=== PATIENT | male | born 1980 | race Caucasian/White ===

== ENCOUNTER 2017-06-07 18:30 | Emergency (ER) | payer OTHER ==
[~2017-06-07] VITALS: Ht 188 cm; Wt 124.7 kg
[~2017-06-07 18:30] MED LIST: Ativan1 MG PO; Zofran Odt4 MG SL
[2017-06-07] MEDS ORDERED: Norco 5-325 Ta1 EACH PO (19:52)
[2017-06-07] MEDS ORDERED: Cyclobenzaprine5 MG PO (19:54)
[2017-06-07] MEDS ORDERED: Ultram50 MG PO (20:09)
== END 2017-06-07 20:12 | disposition home or self-care (01) ==
LOC: ER 18:30
DX: M54.2 Cervicalgia (principal); M25.512 Pain in left shoulder; Z88.5 Allergy status to narcotic agent; Z88.8 Allergy status to other drugs, medicaments and biological substances; Z87.891 Personal history of nicotine dependence; X58.XXXA Exposure to other specified factors, initial encounter
CPT/HCPCS: 72040; 72070; 73030; 96372; 99283; J1885

== ENCOUNTER 2017-06-22 18:58 | Emergency (ER) | payer OTHER ==
[~2017-06-22] VITALS: Ht 188 cm; Wt 122.5 kg
[~2017-06-22 18:58] MED LIST changes: +Cyclobenzaprine5 MG PO; +Norco 5-325 Ta1 EACH PO; +Ultram50 MG PO
[2017-06-22] MEDS ORDERED: Bupropion Xl150 MG PO (19:37)
[2017-06-22] MEDS ORDERED: PROP80ER PO (19:37)
== END 2017-06-22 20:05 | disposition home or self-care (01) ==
LOC: ER 18:58
DX: M54.2 Cervicalgia (principal); M25.512 Pain in left shoulder; M54.6 Pain in thoracic spine; F17.200 Nicotine dependence, unspecified, uncomplicated; Z88.5 Allergy status to narcotic agent; Z88.8 Allergy status to other drugs, medicaments and biological substances; Z79.899 Other long term (current) drug therapy
CPT/HCPCS: 99282

== ENCOUNTER → 2018-11-29 | Outpatient (CLI) | payer OTHER ==
[~2018-11-29] MED LIST changes: +Bupropion Xl150 MG PO; +PROP80ER PO
[2018-11-29 17:44] LABS: BASOPHILS ABSOLUTE AUTO 0.04 K/mm3 (0.00-0.23); BASOPHILS PERCENT AUTO 0 % (0-2); EOSINOPHILS ABSOLUTE AUTO 0.11 K/mm3 (0.00-0.68); EOSINOPHILS PERCENT AUTO 1 % (0-6); Hematocrit 44.9 % (37.0-53.0); Hemoglobin 15.7 g/dL (13.5-17.5); IMMATURE GRAN ABSOLUTE AUTO 0.04 K/mm3 (0.00-0.10); IMMATURE GRAN PERCENT AUTO 0 % (0-1); LYMPHOCYTES ABSOLUTE AUTO 2.48 K/mm3 (0.84-5.20); LYMPHOCYTES PERCENT AUTO 26 % (21-46); MONOCYTES ABSOLUTE AUTO 0.77 K/mm3 (0.16-1.47); MONOCYTES PERCENT AUTO 8 % (4-13); Mean Corpuscular HGB 29.6 pg (26.0-34.0); Mean Corpuscular Volume 85 fL (80-100); Mean Platelet Volume 9.2 fL (9.1-12.4); NEUTROPHILS ABSOLUTE AUTO 5.95 K/mm3 (1.96-9.15); NEUTROPHILS PERCENT AUTO 63 % (41-73); Platelet Count 249 K/mm3 (150-400); RDW Coefficient Variation 13.1 % (11.7-14.2); RDW Standard Deviation 39.9 fL (35.1-46.3); White Blood Cell Count 9.39 K/mm3 (4.00-11.30)
[2018-11-29 18:03] LABS: Alanine Aminotransfer (ALT/SGP 53 U/L (12-78); Albumin, Blood 4.1 g/dL (3.4-5.0); Albumin/Globulin Ratio 1.2 (0.8-1.8); Alk Phos 116 U/L (40-126); Anion Gap 11 mmol/L (6-16); Aspartate Aminotrans (AST/SGOT 23 U/L (12-37); Bilirubin, Total 0.4 mg/dL (0.1-1.0); Blood Urea Nitrogen 10 mg/dL (8-24); Bun/Creatinine Ratio 9.7 (12.0-20.0); CO2, Blood 25 mmol/L (21-32); Chloride, Blood 102 mmol/L (98-108); Creatinine, Blood 1.03 mg/dL (0.60-1.20); Free Thyroxine 0.95 ng/dL (0.70-1.60); Globulin, Blood 3.5 g/dL (2.2-4.0); Glomerular Filtration Rate >60 (60-); Glucose, Blood 98 mg/dL (70-99); Potassium, Blood 3.9 mmol/L (3.5-5.5); Sodium, Blood 138 mmol/L (136-145); Thyroid Stimulating Hormone 1.057 uIU/mL (0.360-4.800); Total Protein, Blood 7.6 g/dL (6.4-8.2)
== END | disposition home or self-care (01) ==
LOC: LAB EV 17:39 → LAB SHORT 17:39
PROVIDERS: General Practice
DX: M79.89 Other specified soft tissue disorders (principal); R53.81 Other malaise
CPT/HCPCS: 80053; 84439; 84443; 85025

== ENCOUNTER 2020-02-29 23:54 | Emergency (ER) | payer OTHER ==
[~2020-02-29] VITALS: Ht 193 cm; Wt 131.5 kg
[2020-03-01] MEDS ORDERED: AMLO5 PO (02:20)
[2020-03-01] MEDS ORDERED: PARO30 PO (02:20)
[2020-03-01] MEDS ORDERED: AMLODIPINE-OLM1 EAC2 PO (02:20)
[2020-03-01] MEDS ORDERED: TIZA4 PO (02:21)
[2020-03-01] MEDS ORDERED: SUMA25 PO (02:21)
[2020-03-01] MEDS ORDERED: BUTALB-ACETAMI1 EAC7 PO (02:21)
== END 2020-03-01 02:38 | disposition home or self-care (01) ==
LOC: ER 23:54
DX: R51.9 Headache, unspecified (principal); G89.29 Other chronic pain; I10 Essential (primary) hypertension; F17.210 Nicotine dependence, cigarettes, uncomplicated; Z87.820 Personal history of traumatic brain injury; Z88.5 Allergy status to narcotic agent; Z88.8 Allergy status to other drugs, medicaments and biological substances; Z79.899 Other long term (current) drug therapy
CPT/HCPCS: 36415; 96361; 96374; 96375; 99283; J1200; J1885; J2405; J7030

== ENCOUNTER 2020-10-08 17:07 | Inpatient (IN) | payer OTHER ==
[~2020-10-08] VITALS: Ht 188 cm; Wt 137.6 kg
[~2020-10-08 17:07] MED LIST changes: +AMLO5 PO; +AMLODIPINE-OLM1 EAC2 PO; +BUTALB-ACETAMI1 EAC7 PO; +PARO30 PO; +SUMA25 PO; +TIZA4 PO
[2020-10-08 17:33] LABS: BASOPHILS ABSOLUTE AUTO 0.05 K/mm3 (0.00-0.23); BASOPHILS PERCENT AUTO 1 % (0-2); EOSINOPHILS PERCENT AUTO 1 % (0-6); Hematocrit 40.4 % (37.0-53.0); Hemoglobin 13.9 g/dL (13.5-17.5); IMMATURE GRAN ABSOLUTE AUTO 0.09 K/mm3 (0.00-0.10); IMMATURE GRAN PERCENT AUTO 1 % (0-1); LYMPHOCYTES ABSOLUTE AUTO 2.04 K/mm3 (0.84-5.20); LYMPHOCYTES PERCENT AUTO 23 % (21-46); MONOCYTES ABSOLUTE AUTO 1.04 K/mm3 (0.16-1.47); MONOCYTES PERCENT AUTO 12 % (4-13); Mean Corpuscular HGB 29.6 pg (26.0-34.0); Mean Corpuscular HGB Conc 34.4 g/dL (31.5-36.5); Mean Corpuscular Volume 86 fL (80-100); Mean Platelet Volume 9.1 fL (9.1-12.4); NEUTROPHILS ABSOLUTE AUTO 5.71 K/mm3 (1.96-9.15); NEUTROPHILS PERCENT AUTO 63 % (41-73); Platelet Count 262 K/mm3 (150-400); RDW Coefficient Variation 12.6 % (11.7-14.2); RDW Standard Deviation 39.9 fL (35.1-46.3); White Blood Cell Count 9.03 K/mm3 (4.00-11.30)
[2020-10-08 17:55] LABS: Alanine Aminotransfer (ALT/SGP 41 U/L (12-78); Albumin, Blood 3.6 g/dL (3.4-5.0); Albumin/Globulin Ratio 0.9 (0.8-1.8); Alk Phos 136 U/L (50-136); Anion Gap 6 mmol/L (6-16); Aspartate Aminotrans (AST/SGOT 18 U/L (12-37); Bilirubin, Total 0.3 mg/dL (0.1-1.0); Blood Urea Nitrogen 13 mg/dL (8-24); Bun/Creatinine Ratio 12.5 (12.0-20.0); CO2, Blood 25 mmol/L (21-32); Calcium, Blood 8.8 mg/dL (8.5-10.1); Chloride, Blood 106 mmol/L (98-108); Creatinine, Blood 1.04 mg/dL (0.60-1.20); Globulin, Blood 3.8 g/dL (2.2-4.0); Glomerular Filtration Rate >60 (60-); Glucose, Blood 110 mg/dL (70-99); Potassium, Blood 3.9 mmol/L (3.5-5.5); Sodium, Blood 137 mmol/L (136-145); Total Protein, Blood 7.4 g/dL (6.4-8.2)
[2020-10-08] MEDS ORDERED: Gabapentin600 MG PO (22:00)
[2020-10-08] MEDS ORDERED: TRAZ50 PO (22:01)
[2020-10-08] MEDS ORDERED: Lisinopril-Hct1 EAC4 PO (22:01)
[2020-10-08] MEDS ORDERED: RIZATRIPTAN10 M3 PO (22:49)
[2020-10-08] MEDS ORDERED: CELEXA10 MG PO (22:50)
[2020-10-08] MEDS ORDERED: CYCL10 PO (22:51)
[2020-10-08] MEDS ORDERED: INDO50 PO (22:53)
[2020-10-08] MEDS ORDERED: ZEBUTAL 50-3251 EAC1 PO (22:57)
[2020-10-08] MEDS ORDERED: ALPR.25 PO (22:58)
--- NOTE | 2020-10-09 04:23 | NUR ---
SHIFT SUMMARY ASSUMED CARE OF PT AT 2200. [T IS A/OX4. HEART SOUNDS REGULAR, LUNG SOUNDS CLEAR. PT C/O CONSTIPATION, BOWEL CARE GIVEN. PT IS INDEPENDENT IN ROOM. PT R KNEE IS VERY TENDER AND SWOLLEN FROM ABOVE THE KNEE DOWN TO HIS FOOT. REDNESS AROUND HIS KNEE WITH A SMALL ABASION ON HIS PATELLA. CALL LIGHT IN REACH, BED IN LOWEST POSTION.
[2020-10-09 05:43] LABS: BASOPHILS ABSOLUTE AUTO 0.04 K/mm3 (0.00-0.23); BASOPHILS PERCENT AUTO 1 % (0-2); EOSINOPHILS ABSOLUTE AUTO 0.12 K/mm3 (0.00-0.68); EOSINOPHILS PERCENT AUTO 2 % (0-6); Hematocrit 37.5 % (37.0-53.0); Hemoglobin 12.8 g/dL (13.5-17.5); IMMATURE GRAN ABSOLUTE AUTO 0.08 K/mm3 (0.00-0.10); IMMATURE GRAN PERCENT AUTO 1 % (0-1); LYMPHOCYTES ABSOLUTE AUTO 2.32 K/mm3 (0.84-5.20); LYMPHOCYTES PERCENT AUTO 35 % (21-46); MONOCYTES ABSOLUTE AUTO 0.85 K/mm3 (0.16-1.47); MONOCYTES PERCENT AUTO 13 % (4-13); Mean Corpuscular HGB 29.6 pg (26.0-34.0); Mean Corpuscular HGB Conc 34.1 g/dL (31.5-36.5); Mean Corpuscular Volume 87 fL (80-100); Mean Platelet Volume 9.1 fL (9.1-12.4); NEUTROPHILS ABSOLUTE AUTO 3.21 K/mm3 (1.96-9.15); NEUTROPHILS PERCENT AUTO 49 % (41-73); Platelet Count 233 K/mm3 (150-400); RDW Coefficient Variation 12.7 % (11.7-14.2); RDW Standard Deviation 39.8 fL (35.1-46.3); Red Blood Cell Count 4.33 M/mm3 (4.30-5.90); White Blood Cell Count 6.62 K/mm3 (4.00-11.30)
[2020-10-09 06:07] LABS: Anion Gap 6 mmol/L (6-16); Blood Urea Nitrogen 12 mg/dL (8-24); Bun/Creatinine Ratio 13.6 (12.0-20.0); CO2, Blood 26 mmol/L (21-32); Calcium, Blood 8.4 mg/dL (8.5-10.1); Chloride, Blood 105 mmol/L (98-108); Creatinine, Blood 0.88 mg/dL (0.60-1.20); Glomerular Filtration Rate >60 (60-); Glucose, Blood 116 mg/dL (70-99); Potassium, Blood 3.6 mmol/L (3.5-5.5); Sodium, Blood 137 mmol/L (136-145)
[2020-10-09] MEDS ORDERED: HYDR1TAB94 PO (16:24)
[2020-10-09] MEDS ORDERED: CEFD300 PO (17:36)
--- NOTE | 2020-10-09 18:13 | NUR ---
PATIENT D/C'D TO HOME. RX MEDICATIONS FAXED TO [facility] AND HARD SCRIPT FOR NORCO GIVEN TO PATIENT. DC INSTRUCTIONS AND EDUCATION DISCUSSED WITH PATIENT AND COPY PROVIDED. PATIENT DENIES ANY FURTHER QUESTIONS OR CONCERNS.
== END 2020-10-09 18:03 | disposition home or self-care (01) | DRG 603 ==
LOC: ER 17:07 → MEDS 20:13
PROVIDERS: Nurse Practitioner Acute Care; Physician Assistant; ADMIT Internal Medicine
DX: L03.115 Cellulitis of right lower limb (principal); I10 Essential (primary) hypertension; G43.909 Migraine, unspecified, not intractable, without status migrainosus; F17.290 Nicotine dependence, other tobacco product, uncomplicated; F41.9 Anxiety disorder, unspecified
CPT/HCPCS: 36415; 80048; 80053; 85025; 86140; 93971; 96365; 96375; 99285-25; A9270; J0692; J0696; J1650; J1885; J3370; J7050

== ENCOUNTER 2023-03-23 16:11 | Emergency (ER) | payer OTHER ==
[~2023-03-23] VITALS: Ht 188 cm; Wt 131.5 kg
[~2023-03-23 16:11] MED LIST changes: +ALPR.25 PO; +CEFD300 PO; +CELEXA10 MG PO; +CYCL10 PO; +Gabapentin600 MG PO; +HYDR1TAB94 PO; +INDO50 PO; +Lisinopril-Hct1 EAC4 PO; +RIZATRIPTAN10 M3 PO; +TRAZ50 PO; +ZEBUTAL 50-3251 EAC1 PO
[2023-03-23 16:45] LABS: BASOPHILS ABSOLUTE AUTO 0.03 K/mm3 (0.00-0.23); BASOPHILS PERCENT AUTO 1 % (0-2); EOSINOPHILS ABSOLUTE AUTO 0.18 K/mm3 (0.00-0.68); EOSINOPHILS PERCENT AUTO 3 % (0-6); Hematocrit 43.9 % (37.0-53.0); Hemoglobin 14.8 g/dL (13.5-17.5); IMMATURE GRAN ABSOLUTE AUTO 0.02 K/mm3 (0.00-0.10); IMMATURE GRAN PERCENT AUTO 0 % (0-1); LYMPHOCYTES ABSOLUTE AUTO 1.64 K/mm3 (0.84-5.20); LYMPHOCYTES PERCENT AUTO 25 % (21-46); MONOCYTES ABSOLUTE AUTO 0.81 K/mm3 (0.16-1.47); MONOCYTES PERCENT AUTO 12 % (4-13); Mean Corpuscular HGB 29.7 pg (26.0-34.0); Mean Corpuscular HGB Conc 33.7 g/dL (31.5-36.5); Mean Corpuscular Volume 88 fL (80-100); Mean Platelet Volume 9.4 fL (9.1-12.4); NEUTROPHILS ABSOLUTE AUTO 3.85 K/mm3 (1.96-9.15); NEUTROPHILS PERCENT AUTO 59 % (41-73); Platelet Count 214 K/mm3 (150-400); RDW Coefficient Variation 13.6 % (11.7-14.2); RDW Standard Deviation 43.3 fL (35.1-46.3); Red Blood Cell Count 4.99 M/mm3 (4.30-5.90); White Blood Cell Count 6.53 K/mm3 (4.00-11.30)
[2023-03-23 17:11] LABS: Albumin, Blood 3.3 g/dL (3.4-5.0); Bilirubin, Total 0.3 mg/dL (0.1-1.0); Bun/Creatinine Ratio 11.4 (12.0-20.0); Calcium, Blood 7.9 mg/dL (8.5-10.1); Creatinine, Blood 0.87 mg/dL (0.60-1.20); Globulin, Blood 3.3 g/dL (2.2-4.0); Potassium, Blood 3.9 mmol/L (3.5-5.5); Total Protein, Blood 6.6 g/dL (6.4-8.2)
[2023-03-23 18:26] LABS: Source, Urine Clean Catch
[2023-03-23 18:41] LABS: Appearance, Urine Clear (Clear); Bilirubin, Urine Neg (Neg); Blood, Urine Neg (Neg); Color, Urine Yellow (P-Yellow); Glucose Qualitative, Urine Neg (Neg); Ketones, Urine Neg (Neg); Leukocyte Esterase, Urine Neg (Neg); Nitrite, Urine Neg (Neg); Protein, Urine 1+ (Neg); Urobilinogen, Urine NORM (Normal)
[2023-03-23 20:43] VITALS: BP 116/74
== END 2023-03-23 20:48 | disposition home or self-care (01) ==
LOC: ER 16:11
PROVIDERS: Student in an Organized Health Care Education/Training Program
DX: K52.9 Noninfective gastroenteritis and colitis, unspecified (principal); I10 Essential (primary) hypertension; F17.210 Nicotine dependence, cigarettes, uncomplicated; Z79.899 Other long term (current) drug therapy
CPT/HCPCS: 74177; 80053; 83690; 84484; 85025; 93005; 93010; 96374; 99284-25; A9270; J2405; Q9967

== ENCOUNTER 2023-06-21 09:52 | Emergency (ER) | payer OTHER ==
[~2023-06-21] VITALS: Ht 188 cm; Wt 123.8 kg
[2023-06-21 10:20] VITALS: BP 148/96
[2023-06-21] MEDS ORDERED: HYDROcodone 5-APAP 325 TAB PO ONE (11:10)
[2023-06-21] MEDS ORDERED: Percocet 5-3251 EACH PO (12:54)
[2023-06-21] MEDS ORDERED: Ketorolac Tromethamine 30mg Vial IM ONE (13:10)
== END 2023-06-21 13:13 ==
LOC: ER 09:52
DX: M25.511 Pain in right shoulder (principal); M25.562 Pain in left knee; Z79.899 Other long term (current) drug therapy; I10 Essential (primary) hypertension; G43.909 Migraine, unspecified, not intractable, without status migrainosus; F17.210 Nicotine dependence, cigarettes, uncomplicated
CPT/HCPCS: 73030; 73562-LT; A9270; J1885